=== PATIENT | female | born 2000 | race Caucasian/White ===

== ENCOUNTER 2021-07-09 03:35 | Emergency (ER) | payer BC ==
[~2021-07-09] VITALS: Ht 167.6 cm; Wt 72.6 kg
[2021-07-09 03:35] VITALS: BP 118/99
--- NOTE | 2021-07-09 03:42 | NUR ---
VENECIA MILLER TO CHAIR E [facility]IA [facility] 166
[2021-07-09] MEDS ORDERED: PROCHLORPERAZINE 10 MG/2 ML VIAL IVP ONE (03:50)
[2021-07-09] MEDS ORDERED: ONDANSETRON 4 MG/2 ML VIAL IVP ONE (03:50)
[2021-07-09] MEDS ORDERED: NACL 0.9% 2,000 ML IV ONE (03:50)
== END 2021-07-09 04:25 | disposition home or self-care (01) ==
LOC: MED 03:35
DX: F10.129 Alcohol abuse with intoxication, unspecified (principal); F12.10 Cannabis abuse, uncomplicated; R11.2 Nausea with vomiting, unspecified; Y90.9 Presence of alcohol in blood, level not specified
CPT/HCPCS: 99283